=== PATIENT | male | born 1975 | race Caucasian/White ===

== ENCOUNTER 2019-11-13 10:32 | Outpatient (CLI) | payer OTHER ==
[2019-11-13] MEDS ORDERED: LISI-170 PO (11:08)
[2019-11-13] MEDS ORDERED: ATOR10TA9 PO (11:08)
[2019-11-13] MEDS ORDERED: DAPA10TA PO (11:08)
[2019-11-13] MEDS ORDERED: SITA100T PO (11:08)
[2019-11-13] MEDS ORDERED: ACET-1600 PO (11:24)
[2019-11-13 12:33] LABS: BASOPHILS # (AUTO) 0.03 x10^3/uL (0-0.1); BASOPHILS % (AUTO) 0 % (0-1); EOSINOPHILS # (AUTO) 0.07 x10^3/uL (0-0.4); EOSINOPHILS % (AUTO) 1 % (1-7); LYMPHOCYTES # (AUTO) 2.19 x10^3/uL (1-3.4); LYMPHOCYTES % (AUTO) 24 % (22-44); MD NO; MEAN CORPUSCULAR HEMOGLOBIN 29.7 pg (27.5-34.5); MEAN CORPUSCULAR VOLUME 89.9 fL (81-97); MEAN PLATELET VOLUME 8.3 fL (7.4-10.4); MONOCYTES # (AUTO) 0.61 x10^3/uL (0.2-0.8); MONOCYTES % (AUTO) 7 % (2-9); NEUTROPHILS % (AUTO) 68 % (42-75); PLATELET COUNT 181 x10^3/uL (130-400); RED BLOOD COUNT 5.46 x10^6/uL (4.38-5.82); RED CELL DISTRIBUTION WIDTH 12.9 % (9.4-14.8)
[2019-11-13 12:45] LABS: MICROSCOPIC NOT IND
[2019-11-13 12:47] LABS: ALANINE AMINOTRANSFERASE 51 U/L (12-78); ALBUMIN 4.3 g/dL (3.4-5.0); ANION GAP 8 mmol/L (5-15); CALCIUM 8.7 mg/dL (8.5-10.1); CHLORIDE 106 mmol/L (98-107)
[2019-11-13 12:49] LABS: ALKALINE PHOSPHATASE 57 U/L (45-117); BILIRUBIN,TOTAL 0.9 mg/dL (0.2-1.0); TOTAL PROTEIN 7.8 g/dL (6.4-8.2)
[2019-11-13 13:47] LABS: INTERNATIONAL NORMALIZED RATIO 0.89 (0.93-1.1); PROTHROMBIN TIME 9.4 Seconds (9.6-11.5)
== END 2019-11-13 23:59 | disposition home or self-care (01) ==
LOC: STAR 10:32 → EDSEX 10:32 → STAR 23:59
PROVIDERS: ATTEND Orthopaedic Surgery Orthopaedic Surgery of the Spine
DX: Z01.818 Encounter for other preprocedural examination (principal); Z11.59 Encounter for screening for other viral diseases; M50.00 Cervical disc disorder with myelopathy, unspecified cervical region
CPT/HCPCS: 36415; 71046; 80053; 81003; 85025; 85610; 85730; 93005; U0001

== ENCOUNTER 2019-11-17 05:40 | Inpatient (IN) | payer OTHER ==
[~2019-11-17] VITALS: Ht 177.8 cm; Wt 101.0 kg
[~2019-11-17 05:40] MED LIST: ACET-1600 PO; ATOR10TA9 PO; DAPA10TA PO; LISI-170 PO; SITA100T PO
[2019-11-17] MEDS ORDERED: LACTATED RINGERS 1,000 ML IV SCH (06:34)
[2019-11-17] MEDS ORDERED: BUPIVACAINE/PF-EPI 0.25% 1:200K ONE (06:56)
[2019-11-17] MEDS ORDERED: LIDOCAINE/PF 0.5% ,50ML ONE (06:56)
[2019-11-17] MEDS ORDERED: VANCOMYCIN 1,000 MG ONE (06:56)
[2019-11-17] MEDS ORDERED: EPINEPHRINE 1 MG/ML, 1ML ONE (06:56)
[2019-11-17] MEDS ORDERED: TRIAMCINOLONE ACETONIDE 40 MG/ML, 1ML ONE (06:57)
[2019-11-17] MEDS ORDERED: CHLORHEXIDINE 15 ML UDC MM ONE (07:00)
[2019-11-17] MEDS ORDERED: GLYCOPYRROLATE 0.2MG/1ML, 5ML ONE (07:11)
[2019-11-17] MEDS ORDERED: FENTANYL PF 250 MCG/5ML ONE (07:11)
[2019-11-17] MEDS ORDERED: PROPOFOL 10 MG/ML, 20ML ONE (07:11)
[2019-11-17] MEDS ORDERED: LIDOCAINE-MPF 2% ,5ML ONE (07:11)
[2019-11-17] MEDS ORDERED: DEXAMETHASONE 4 MG/ML, 1ML ONE (07:11)
[2019-11-17] MEDS ORDERED: ROCURONIUM 10MG/ML,5ML ONE (07:11)
[2019-11-17] MEDS ORDERED: MIDAZOLAM 1 MG/ML, 2ML ONE ×2 (07:12)
[2019-11-17] MEDS ORDERED: HYDROcodone/APAP 7.5-325MG/15ML UDC PO PRN (07:30)
[2019-11-17] MEDS ORDERED: ALBUTEROL/IPRATROPIUM 2.5MG/0.5MG, 3 ML NPPB PRN (07:30)
[2019-11-17] MEDS ORDERED: OXYcodone 5 MG/5 ML ORAL.SOL UDC PO PRN (07:30)
[2019-11-17] MEDS ORDERED: LABETALOL 5MG/ML, 20ML IV PRN (07:30)
[2019-11-17] MEDS ORDERED: EPHEDRINE 50 MG/ML, 1ML IVPush PRN (07:30)
[2019-11-17] MEDS ORDERED: morphine SULFATE 10 MG/ML, 1ML IVPush PRN (07:30)
[2019-11-17] MEDS ORDERED: MIDAZOLAM 1 MG/ML, 2ML IV PRN (07:30)
[2019-11-17] MEDS ORDERED: KETOROLAC 30 MG/1 ML IVPush PRN (07:30)
[2019-11-17] MEDS ORDERED: ONDANSETRON 2MG/ML, 2ML IVPush PRN (07:30)
[2019-11-17] MEDS ORDERED: HYDROmorphone 1 MG/ML, 1ML INJ IVPush PRN (07:30)
[2019-11-17] MEDS ORDERED: METOCLOPRAMIDE 5 MG/ML, 2ML IVPush PRN (07:30)
[2019-11-17] MEDS ORDERED: HALOPERIDOL 5 MG/ML IV PRN (07:30)
[2019-11-17] MEDS ORDERED: hydrALAzine 20 MG/ML, 1ML IV PRN (07:30)
[2019-11-17] MEDS ORDERED: MEPERIDINE/PF 25MG/0.5ML IVPush PRN (07:30)
[2019-11-17] MEDS ORDERED: DIPHENHYDRAMINE 50 MG/ML, 1ML IVPush PRN (07:30)
[2019-11-17] MEDS ORDERED: LABETALOL 5MG/ML, 20ML ONE (07:31)
[2019-11-17] MEDS ORDERED: KETAMINE 10 MG/ML, 20ML ONE (07:31)
[2019-11-17] MEDS ORDERED: MAGNESIUM SULFATE 1 GM/2 ML ONE (07:31)
[2019-11-17] MEDS ORDERED: LIDOCAINE 1%, 20ML ONE (07:32)
[2019-11-17] MEDS ORDERED: CEFAZOLIN 1,000 MG ONE (07:41)
[2019-11-17] MEDS ORDERED: FENTANYL PF 100 MCG/2ML ONE (10:14)
[2019-11-17] MEDS: FENTANYL PF 100 MCG/2ML IV PRN ×2 (10:49→11:00)
[2019-11-17] MEDS ORDERED: METHOCARBAMOL 1,000 MG in DEXTROSE 5% 100 ML IV ONE (11:00)
[2019-11-17] MEDS ORDERED: OXYcodone 5 MG/5 ML ORAL.SOL UDC ONE (11:03)
[2019-11-17] MEDS ORDERED: ONDANSETRON 2MG/ML, 2ML IV PRN (12:30)
[2019-11-17] MEDS ORDERED: morphine SULFATE 10 MG/ML, 1ML IV PRN (12:30)
[2019-11-17] MEDS ORDERED: HYDROcodone/APAP 5/325 TABLET PO PRN (12:30)
[2019-11-17] MEDS ORDERED: PROMETHAZINE 25 MG/ML, 1ML IM PRN (12:30)
[2019-11-17] MEDS ORDERED: BISACODYL 10 MG SUPP PR PRN (12:30)
[2019-11-17] MEDS ORDERED: MAGNESIUM HYDROXIDE 8%, 30ML UDC PO PRN (12:30)
[2019-11-17 13:25] VITALS: BP 107/60
[2019-11-17] MEDS: CEFAZOLIN PMX 1GM/50ML 50 ML IVPB SCH (15:57)
[2019-11-17] MEDS: D5%-0.9% NACL+KCL 20MEQ 1,000 ML IV SCH (16:40)
[2019-11-17 18:55] VITALS: BP 104/63
[2019-11-17] MEDS: METHOCARBAMOL 750 MG in DEXTROSE 5% 100 ML IV SCH (19:53)
[2019-11-17] MEDS: SENNA/DOCUSATE TABLET PO SCH (20:46)
[2019-11-17] MEDS ORDERED: ATORVASTATIN 10 MG TABLET PO SCH (21:00)
[2019-11-17] MEDS ORDERED: LISINOPRIL 20 MG TABLET PO SCH (21:00)
[2019-11-17] MEDS ORDERED: DAPAGLIFLOZIN 10 MG HOMEMEDPO SCH (21:00)
[2019-11-18] MEDS: CEFAZOLIN PMX 1GM/50ML 50 ML IVPB SCH
[2019-11-18 00:27] VITALS: BP 117/65
[2019-11-18] MEDS: D5%-0.9% NACL+KCL 20MEQ 1,000 ML IV SCH (03:00)
[2019-11-18] MEDS: METHOCARBAMOL 750 MG in DEXTROSE 5% 100 ML IV SCH ×2 (03:07→11:58)
[2019-11-18] MEDS: HYDROcodone/APAP 10/325 MG TABLET PO PRN ×2 (03:10→11:57)
[2019-11-18 03:30] VITALS: BP 117/65
[2019-11-18 05:36] LABS: BASOPHILS # (AUTO) 0.07 x10^3/uL (0-0.1); BASOPHILS % (AUTO) 0 % (0-1); EOSINOPHILS # (AUTO) 0.05 x10^3/uL (0-0.4); EOSINOPHILS % (AUTO) 0 % (1-7); LYMPHOCYTES # (AUTO) 2.14 x10^3/uL (1-3.4); LYMPHOCYTES % (AUTO) 12 % (22-44); MD NO; MEAN CORPUSCULAR HEMOGLOBIN 29.6 pg (27.5-34.5); MEAN CORPUSCULAR HGB CONC 33.2 g/dL (33.2-36.2); MEAN CORPUSCULAR VOLUME 89.1 fL (81-97); MONOCYTES # (AUTO) 1.18 x10^3/uL (0.2-0.8); MONOCYTES % (AUTO) 7 % (2-9); NEUTROPHILS # (AUTO) 14.14 x10^3/uL (1.8-6.8); NEUTROPHILS % (AUTO) 80 % (42-75); PLATELET COUNT 213 x10^3/uL (130-400); RED BLOOD COUNT 4.87 x10^6/uL (4.38-5.82)
[2019-11-18 05:49] LABS: ANION GAP 10 mmol/L (5-15); CALCIUM 8.2 mg/dL (8.5-10.1); CHLORIDE 105 mmol/L (98-107)
[2019-11-18 05:50] LABS: CREATININE 0.59 mg/dL (0.7-1.3)
[2019-11-18] MEDS: SENNA/DOCUSATE TABLET PO SCH (08:41)
[2019-11-18] MEDS ORDERED: LINAGLIPTIN 5 MG TAB PO SCH (09:00)
[2019-11-18 09:09] VITALS: BP 148/73
[2019-11-18] MEDS ORDERED: METHOCARBAMOL 750 MG TABLET ONE (11:51)
[2019-11-18] MEDS ORDERED: METHOCARBAMOL 750 MG TABLET PO SCH (12:00)
[2019-11-18] MEDS ORDERED: ONDA4TAB13 SL (12:13)
[2019-11-18] MEDS ORDERED: HYDR-3240 PO (12:14)
[2019-11-18 12:19] VITALS: BP 134/76
[2019-11-19] MEDS ORDERED: METHOCARBAMOL 750 MG TABLET PO SCH (19:30)
== END 2019-11-18 12:59 | disposition home or self-care (01) | DRG 473 ==
LOC: EDSEX → ORIP 05:40 → 4NE 11:45 → DCLOUNGE 11-18 12:48
PROVIDERS: ADMIT Orthopaedic Surgery Orthopaedic Surgery of the Spine; ATTEND Orthopaedic Surgery Orthopaedic Surgery of the Spine
PROC: 0RB30ZZ Excision of Cervical Vertebral Disc, Open Approach (ICD-10-PCS; 2019-11-17)
PROC: 4A11X4G Monitoring of Peripheral Nervous Electrical Activity, Intraoperative, External Approach (ICD-10-PCS; 2019-11-17)
PROC: 0QP004Z Removal of Internal Fixation Device from Lumbar Vertebra, Open Approach (ICD-10-PCS; 2019-11-17)
PROC: 0RG10A0 Fusion of Cervical Vertebral Joint with Interbody Fusion Device, Anterior Approach, Anterior Column, Open Approach (ICD-10-PCS; principal; 2019-11-17 07:30)
DX: M48.02 Spinal stenosis, cervical region (principal); E11.9 Type 2 diabetes mellitus without complications; I10 Essential (primary) hypertension; M50.122 Cervical disc disorder at C5-C6 level with radiculopathy; Z79.899 Other long term (current) drug therapy; Z79.84 Long term (current) use of oral hypoglycemic drugs
CPT/HCPCS: 36415; 72040; J3490; 80048; 82962; 85025; 95938; 95941; C1713; G0378; J0171; J0690; J1100; J2001; J2250; J2405; J2550; J2704; J3010; J3301; J3370; J3475; C1762; C1889; J2800; J7120